=== PATIENT | male | born 1975 | race African-American/Black ===

== ENCOUNTER → 2019-09-03 | Outpatient (CLI) | payer OTHER ==
--- NOTE | 2019-09-03 13:58 | Diagnostic Imaging Report ---
EXAMINATION: Magnetic resonance imaging of the right shoulder without contrast. DATE: September 03, 2019. COMPARISON: None. HISTORY: 44-year-old male, right shoulder pain. TECHNIQUE: Magnetic Resonance Imaging sequences were performed of the shoulder without contrast. FINDINGS: ROTATOR CUFF, LIGAMENTS, TENDONS, AND MUSCLES: The supraspinatus, infraspinatus, teres minor, and subscapularis tendons and muscles are intact. There is very minimal edema like signal in the infraspinatus muscle without fatty muscle atrophy. This potentially could relate to a low-grade muscle strain. Early findings of denervation-related edema would also be in the differential diagnosis. The additional rotator cuff muscle bulk and signal is unremarkable. LONG HEAD OF BICEPS: The biceps labral attachment and long head of the biceps tendon is intact. The long head of the biceps tendon is normally positioned within the bicipital groove. GLENOHUMERAL JOINT: The humeral head is well positioned relative to the glenoid. The labrum is grossly intact. There is no identified paralabral cyst. The articular cartilage is grossly intact. There is no joint effusion. ACROMIOCLAVICULAR JOINT: The acromioclavicular joint is normally aligned. The coracoclavicular and coracoacromial ligaments are intact. There are no degenerative changes of the acromioclavicular joint. BONE: There is an os acromiale without evidence of abnormal motion. Additional osseous morphology is unremarkable. The bone marrow signal is within normal limits. Specifically, negative for fracture, osteomyelitis, osteonecrosis, or marrow replacing process. BURSAE AND SOFT TISSUES: There is low level edema in the anterior aspect of the deltoid muscle without fatty muscle atrophy. This also likely reflects a low-grade muscle strain. IMPRESSION: 1. Very low level edema in the anterior aspect of the deltoid muscle as well as in the infraspinatus muscles most likely reflecting low-grade muscle strains. Early denervation related muscle edema would be the primary differential diagnostic consideration. 2. Intact rotator cuff tendons. 3. Intact long head of biceps tendon. 4. Intact acromioclavicular joint. Os acromiale without evidence of abnormal motion. 5. Grossly intact labrum. Unremarkable additional glenohumeral joint assessment. 6. No acute fracture, bone contusion, or evidence of osteonecrosis. Dictated by: Dictated on workstation # [id number]
== END ==
LOC: RAD 10:03
PROVIDERS: ATTEND Nurse Practitioner
DX: M25.511 Pain in right shoulder (principal); R60.0 Localized edema
CPT/HCPCS: 73221